=== PATIENT | female | born 1990 | race Caucasian/White ===

== ENCOUNTER 2022-12-14 09:35 | Outpatient (CLI) | payer MEDICAID, OTHER | END 2022-12-14 09:36 | disposition home or self-care (01) | LOC: CSHULT 09:35 | PROVIDERS: ATTEND Nurse Practitioner Women's Health | DX: O09.892 Supervision of other high risk pregnancies, second trimester (principal); Z3A.22 22 weeks gestation of pregnancy | CPT/HCPCS: 76805 ==

== ENCOUNTER 2023-03-12 09:12 | Day surgery (SDC) | payer OTHER ==
[2023-03-12 09:58] VITALS: BMI 53.7
[2023-03-12] MEDS ORDERED: hydrALAZINE 20 MG/ML VIAL ONE (10:13)
[2023-03-12 10:27] VITALS: BP 161/71
[2023-03-12] MEDS ORDERED: hydrALAZINE 20 MG/ML VIAL SLOW IVP PRN (10:36)
[2023-03-12 10:46] LABS: #Monocytes 0.8 10x3/uL (0.0-1.1); #Neutrophils 6.3 10x3/uL (1.5-8.4); %Basophils 0.2 % (0.0-2.0); %Eosinophils 0.5 % (0.0-6.0); %Lymphocytes 17.6 % (18.0-47.0); %Monocytes 8.8 % (0.0-10.0); %Neutrophils 72.1 % (40.0-75.0); Hemoglobin 12.7 g/dL (12.0-15.5); Mean Corpuscular HGB CONC 33.3 g/dL (32.0-36.0); Mean Corpuscular Hemoglobin 31.6 pg (27.0-33.0); Mean Corpuscular Volume 94.8 fl (81.6-98.3); Mean Platelet Volume 11.3 fl (7.4-10.4); Platelet Count 184 10x3/uL (150-450); RBC Distribution Width 13.8 % (11.5-14.5); Red Blood Cell (RBC) Count 4.02 10x6/uL (3.90-5.03); White Blood Cell (WBC) Count 8.8 10x3/uL (3.5-10.5)
[2023-03-12 10:57] LABS: ALT (SGPT) 16 U/L (8-55); AST (SGOT) 16 U/L (5-34); Albumin 3.5 g/dL (3.5-5.0); Alkaline Phosphatase 99 U/L (40-110); Anion Gap 17 mmol/L (10-20); BUN (Urea Nitrogen) 5 mg/dL (7.0-18.7); Bilirubin, Total 0.7 mg/dL (0.2-1.2); Calc. Creatinine Clearance 315 mL/min (70-130); Calcium 8.5 mg/dL (7.8-10.44); Carbon Dioxide 21 mmol/L (22-29); Chloride 106 mmol/L (98-107); Estimated GFR 124; Globulin 2.6 g/dL (2.4-3.5); Glucose 77 mg/dL (70-105); Potassium 4.1 mmol/L (3.5-5.1); Protein, Total 6.1 g/dL (6.0-8.3); Sodium 140 mmol/L (136-145)
[2023-03-12 11:10] LABS: Bilirubin Neg (Negative); Blood, Urine Negative (Negative); Clarity Clear (Clear); Glucose, Urine (Dipstick) Normal (Negative); Ketone, Urine 50 mg/dL (Negative); Leukocyte Negative (Negative); Nitrite Negative (Negative); Protein, Urine (Dipstick) 15 mg/dl (Neg-Trace); Specific Gravity, Urine 1.015 (1.005-1.030); Urobilinogen Normal mg/dL (Less than 2)
[2023-03-12 11:25] LABS: Bacteria/HPF None Seen HPF (None Seen); CAUTI Indications for Culture Pregnancy; RBC/HPF None Seen HPF (0-3); Squamous Epithelial 0-3 HPF (0-3); Urine Culture Reflex Yes Yes; WBC/HPF 0-3 HPF (0-3)
[2023-03-12 11:29] LABS: Creatinine, Urine 127.75 mg/dL (47-110)
== END 2023-03-12 12:15 | disposition home or self-care (01) ==
LOC: CSHLD/OP 09:12
PROVIDERS: ATTEND Family Medicine
DX: O47.03 False labor before 37 completed weeks of gestation, third trimester (principal); O24.410 Gestational diabetes mellitus in pregnancy, diet controlled; Z87.59 Personal history of other complications of pregnancy, childbirth and the puerperium; Z79.4 Long term (current) use of insulin; Z79.899 Other long term (current) drug therapy; Z88.1 Allergy status to other antibiotic agents; Z3A.35 35 weeks gestation of pregnancy
CPT/HCPCS: 51701; 80053; 81001; 82570; 84156; 85025; 87086; 96360; 96361; 96375; 99283; J0360

== ENCOUNTER 2023-03-18 11:22 | Day surgery (SDC) | payer OTHER | END 2023-03-18 16:30 | disposition home or self-care (01) | LOC: CSHLD/OP 11:22 | PROVIDERS: ATTEND Family Medicine | DX: Z36.89 Encounter for other specified antenatal screening (principal); O24.419 Gestational diabetes mellitus in pregnancy, unspecified control; Z3A.00 Weeks of gestation of pregnancy not specified | CPT/HCPCS: 59025; 76819; 99282 ==

== ENCOUNTER 2023-03-23 05:18 | Inpatient (IN) | payer OTHER ==
[2023-03-23 05:50] VITALS: BMI 53.0
[2023-03-23] MEDS ORDERED: Azithromycin 500 MG in Sodium Chloride 0.9% 250 ML 250 ML IVPB SCH (06:00)
[2023-03-23] MEDS ORDERED: Bicitra 30 ML UDCUP PO PRN (06:00)
[2023-03-23] MEDS ORDERED: Misoprostol 200 MCG TAB PR PRN (06:00)
[2023-03-23] MEDS ORDERED: Ondansetron PF 4 MG/2 ML Vial IVP PRN ×2 (06:00→07:22)
[2023-03-23] MEDS ORDERED: Methylergonovine 0.2 MG/ML VIAL IM PRN (06:00)
[2023-03-23] MEDS ORDERED: hydrALAZINE 20 MG/ML VIAL SLOW IVP PRN (06:00)
[2023-03-23] MEDS ORDERED: Tranexamic Acid 1,000 MG/10 ML VIAL IVP PRN (06:00)
[2023-03-23] MEDS ORDERED: Clindamycin/D5W 900 MG in Premix Bag 1 BAG IVPB SCH (06:00)
[2023-03-23] MEDS ORDERED: Carboprost 250 MCG/ML AMP IM PRN (06:00)
[2023-03-23] MEDS ORDERED: Promethazine HCl 25 MG/ML VIAL IM PRN ×2 (06:00→07:22)
[2023-03-23] MEDS ORDERED: hydrALAZINE 20 MG/ML VIAL ONE (06:00)
[2023-03-23] MEDS ORDERED: NS w/ Oxytocin 30 units 500 ML IV SCH (06:00)
[2023-03-23] MEDS ORDERED: Famotidine/PF 20 mg/2ml Vial SLOW IVP PRN (06:00)
[2023-03-23] MEDS ORDERED: Diphenoxylate HCl/Atropine Tablet PO PRN (06:00)
[2023-03-23] MEDS ORDERED: Magnesium Sulfate 20 gm/500 ml 20 GM/500 ML BAG ONE ×2 (06:05→17:21)
[2023-03-23] MEDS ORDERED: Gentamicin Sulfate 100 MG in Premix Bag 1 BAG IVPB SCH ×2 (06:15→06:30)
[2023-03-23 06:19] LABS: Hematocrit 36.6 % (34.9-44.5); Hemoglobin 12.5 g/dL (12.0-15.5); Mean Corpuscular HGB CONC 34.2 g/dL (32.0-36.0); Mean Corpuscular Hemoglobin 32.6 pg (27.0-33.0); Mean Corpuscular Volume 95.6 fl (81.6-98.3); Mean Platelet Volume 11.9 fl (7.4-10.4); Platelet Count 184 10x3/uL (150-450); Red Blood Cell (RBC) Count 3.83 10x6/uL (3.90-5.03); White Blood Cell (WBC) Count 9.4 10x3/uL (3.5-10.5)
[2023-03-23] MEDS ORDERED: Labetalol HCl 100 MG/20 ML VIAL ONE (06:36)
[2023-03-23] MEDS ORDERED: Dexamethasone 4 mg/ml Vial ONE (07:04)
[2023-03-23] MEDS ORDERED: Morphine PF 10 MG/10 ML VIAL ONE (07:04)
[2023-03-23] MEDS ORDERED: Ondansetron PF 4 MG/2 ML Vial ONE (07:04)
[2023-03-23] MEDS ORDERED: Phenylephrine 10 MG/ML VIAL ONE (07:04)
[2023-03-23] MEDS ORDERED: Oxytocin 10 UNITS/ML VIAL ONE ×2 (07:04→08:17)
[2023-03-23] MEDS ORDERED: fentaNYL 50 mcg/mL 1 mL Vial ONE (07:04)
[2023-03-23] MEDS ORDERED: Fentanyl 100 MCG/2 ML VIAL SLOW IVP PRN (07:22)
[2023-03-23] MEDS ORDERED: Promethazine HCl 25 MG SUPP PR PRN (07:22)
[2023-03-23] MEDS ORDERED: Meperidine HCl/PF 25 MG/ML VIAL SLOW IVP PRN (07:22)
[2023-03-23] MEDS ORDERED: Naloxone HCl 0.4 mg/ml Vial IV PRN (07:22)
[2023-03-23] MEDS ORDERED: diphenhydrAMINE 50 MG/ML VIAL IVP PRN (07:22)
[2023-03-23] MEDS ORDERED: HYDROmorphone 2 MG/ML VIAL SLOW IVP PRN (07:22)
[2023-03-23] MEDS ORDERED: Naloxone HCl 0.4 mg/ml Vial IVP PRN ×2 (07:22)
[2023-03-23] MEDS ORDERED: Ondansetron HCl/PF 4 MG/2 ML Vial IVP PRN (07:22)
[2023-03-23] MEDS ORDERED: Moisturizing Cream (Eucerin) 113 GM JAR TOP PRN (07:22)
[2023-03-23] MEDS ORDERED: Ketorolac Tromethamine 30 MG/ML VIAL IVP SCH (07:30)
[2023-03-23] MEDS ORDERED: Communication Order-Pharmacy FS SCH (07:30)
[2023-03-23 07:49] LABS: HBSAg Index 0.18 S/CO (0-0.99); Hep B Surf Ag - L&D Non-Reactive S/CO (NonReactive)
[2023-03-23 07:50] LABS: Syphilis Antibody Nonreactive (Nonreactive); Syphilis Antibody Index 0.03 S/CO (<1.00 Non-Reactive)
[2023-03-23] MEDS ORDERED: Promethazine HCl 25 MG/ML VIAL ONE (08:11)
[2023-03-23] MEDS ORDERED: PHENYLEPHRINE-NS 100 MCG/ML 10 ML SYRINGE ONE (08:32)
[2023-03-23] MEDS: Lactated Ringer's 1,000 ML IV SCH (10:00)
[2023-03-23] MEDS: Ketorolac Tromethamine 30 MG/ML VIAL IVP PRN (11:37)
[2023-03-24] MEDS ORDERED: Magnesium Sulfate 20 gm/500 ml 20 GM/500 ML BAG ONE (00:39)
[2023-03-24] MEDS ORDERED: Ketorolac Tromethamine 30 MG/ML VIAL ONE (00:43)
[2023-03-24] MEDS: Ketorolac Tromethamine 30 MG/ML VIAL IVP PRN (00:43)
[2023-03-24] MEDS ORDERED: Promethazine HCl 25 MG/ML VIAL IM PRN (08:02)
[2023-03-24] MEDS ORDERED: hydrALAZINE 20 MG/ML VIAL SLOW IVP PRN ×2 (08:02)
[2023-03-24] MEDS ORDERED: Calcium Gluc 4.6 MEQ/10 ML (100 MG/ML) SLOW IVP PRN (08:02)
[2023-03-24] MEDS ORDERED: Meperidine HCl/PF 25 MG/ML VIAL IM PRN (08:02)
[2023-03-24] MEDS ORDERED: Ketorolac Tromethamine 30 MG/ML VIAL IVP SCH (08:02)
[2023-03-24] MEDS ORDERED: Magnesium Sulfate 20 gm/500 ml 20 GM/500 ML BAG IVPB SCH (08:02)
[2023-03-24] MEDS ORDERED: Lanolin Ointment 7 GM TUBE TOP PRN (08:02)
[2023-03-24] MEDS ORDERED: Boostrix 0.5 ML (Tdap) VIAL (>/=7 yrs of age) IM ONE (08:02)
[2023-03-24] MEDS ORDERED: diphenhydrAMINE 25 MG CAP PO PRN (08:02)
[2023-03-24] MEDS ORDERED: Ondansetron PF 4 MG/2 ML Vial IVP PRN (08:02)
[2023-03-24] MEDS ORDERED: Lorazepam 2 MG/ML VIAL SLOW IVP PRN (08:02)
[2023-03-24] MEDS ORDERED: Bisacodyl 10 MG SUPP PR PRN (08:02)
[2023-03-24] MEDS ORDERED: Labetalol HCl 100 MG/20 ML VIAL SLOW IVP PRN (08:02)
[2023-03-24] MEDS: Labetalol HCl 100 MG TAB PO SCH ×3 (08:19→21:52)
[2023-03-24] MEDS: Docusate 100 MG CAP PO SCH ×2 (08:30→21:51)
[2023-03-24] MEDS: Ferrous Sulfate 325 MG TAB PO SCH ×2 (08:30→21:51)
[2023-03-24] MEDS: HYDROcodone/Acetaminophen 5/325 mg Tablet PO PRN ×3 (09:35→15:24)
[2023-03-24] MEDS: Prenatal Vitamin 1 TAB PO SCH (12:45)
[2023-03-24] MEDS: Lactated Ringer's 1,000 ML IV SCH ×2 (12:47→12:48)
[2023-03-24] MEDS: Ibuprofen 800 MG TAB PO SCH (17:30)
[2023-03-24] MEDS: Simethicone Chewable 80 MG TAB PO PRN (17:31)
[2023-03-25] MEDS: Ibuprofen 800 MG TAB PO SCH ×3 (01:38→18:03)
[2023-03-25] MEDS: HYDROcodone/Acetaminophen 5/325 mg Tablet PO PRN ×5 (01:38→21:48)
[2023-03-25 04:47] LABS: Hematocrit 34.1 % (34.9-44.5); Hemoglobin 11.2 g/dL (12.0-15.5); Mean Corpuscular HGB CONC 32.8 g/dL (32.0-36.0); Mean Corpuscular Hemoglobin 31.5 pg (27.0-33.0); Mean Corpuscular Volume 96.1 fl (81.6-98.3); Mean Platelet Volume 11.7 fl (7.4-10.4); Platelet Count 188 10x3/uL (150-450); RBC Distribution Width 14.6 % (11.5-14.5); Red Blood Cell (RBC) Count 3.55 10x6/uL (3.90-5.03); White Blood Cell (WBC) Count 8.1 10x3/uL (3.5-10.5)
[2023-03-25] MEDS: Labetalol HCl 100 MG TAB PO SCH ×3 (06:06→21:43)
[2023-03-25] MEDS: Ferrous Sulfate 325 MG TAB PO SCH ×2 (08:27→20:43)
[2023-03-25] MEDS: Prenatal Vitamin 1 TAB PO SCH (08:32)
[2023-03-25] MEDS: Docusate 100 MG CAP PO SCH ×2 (08:32→21:43)
[2023-03-25] MEDS: Simethicone Chewable 80 MG TAB PO PRN (08:33)
[2023-03-25] MEDS ORDERED: Ibuprofen 800 MG TAB PO SCH (14:00)
[2023-03-26] MEDS: Ibuprofen 800 MG TAB PO SCH ×2 (01:42→08:37)
[2023-03-26] MEDS: Labetalol HCl 100 MG TAB PO SCH ×2 (06:23→13:25)
[2023-03-26] MEDS: Prenatal Vitamin 1 TAB PO SCH (08:37)
[2023-03-26] MEDS: Ferrous Sulfate 325 MG TAB PO SCH (08:38)
[2023-03-26] MEDS: Docusate 100 MG CAP PO SCH (08:38)
[2023-03-26] MEDS: HYDROcodone/Acetaminophen 5/325 mg Tablet PO PRN (10:17)
[2023-03-26 13:17] VITALS: BP 142/88; TEMP 98.1
== END 2023-03-26 13:40 | disposition home or self-care (01) | DRG 786 ==
LOC: CSHLD 05:18 → CSHPP 03-24 10:15
PROVIDERS: ADMIT Family Medicine; ATTEND Family Medicine
PROC: 10D00Z1 Extraction of Products of Conception, Low, Open Approach (ICD-10-PCS; principal; 2023-03-23)
PROC: 3E0P05Z Introduction of Adhesion Barrier into Female Reproductive, Open Approach (ICD-10-PCS; 2023-03-23)
DX: O34.211 Maternal care for low transverse scar from previous cesarean delivery (principal); O24.32 Unspecified pre-existing diabetes mellitus in childbirth; Z3A.37 37 weeks gestation of pregnancy; Z37.0 Single live birth; O14.94 Unspecified pre-eclampsia, complicating childbirth; O99.214 Obesity complicating childbirth; E66.01 Morbid (severe) obesity due to excess calories; N99.4 Postprocedural pelvic peritoneal adhesions
CPT/HCPCS: 36415; 36416; 51702; 85027; 86780; 86850; 86900; 86901; 87340; J0360; J1100; J1580; J1885; J2274; J2370; J2405; J2550; J2590; J3010; J3475; J7120

== ENCOUNTER 2024-09-11 04:05 | Day surgery (SDC) | payer OTHER ==
[2024-09-11 05:01] VITALS: BMI 46.6
[2024-09-11] MEDS ORDERED: hydrALAZINE 20 MG/ML VIAL SLOW IVP PRN (05:34)
[2024-09-11] MEDS: Lactated Ringer's 1,000 ML IV SCH (05:50)
[2024-09-11 06:14] LABS: #Basophils Less than 0.03 10x3/uL (0.0-0.2); #Eosinophils 0.03 10x3/uL (0.0-0.5); #Monocytes 0.81 10x3/uL (0.0-1.1); #Neutrophils 7.87 10x3/uL (1.5-8.4); %Basophils 0.2 % (0.0-2.0); %Eosinophils 0.3 % (0.0-6.0); %Lymphocytes 17.2 % (18.0-47.0); %Monocytes 7.6 % (0.0-10.0); %Neutrophils 73.8 % (40.0-75.0); Hematocrit 38.5 % (34.9-44.5); Hemoglobin 13.7 g/dL (12.0-15.5); Mean Corpuscular HGB CONC 35.6 g/dL (32.0-36.0); Mean Corpuscular Hemoglobin 33.2 pg (27.0-33.0); Mean Corpuscular Volume 93.2 fL (81.6-98.3); Mean Platelet Volume 11.4 fL (7.4-10.4); Platelet Count 196 10x3/uL (150-450); RBC Distribution Width 13.3 % (11.5-14.5); Red Blood Cell (RBC) Count 4.13 10x6/uL (3.90-5.03); White Blood Cell (WBC) Count 10.66 10x3/uL (3.5-10.5)
[2024-09-11] MEDS: Ondansetron PF 4 MG/2 ML Vial IVP SCH (06:19)
[2024-09-11] MEDS ORDERED: Morphine PF 10 MG/10 ML VIAL ONE (06:53)
[2024-09-11] MEDS ORDERED: Dexmedetomidine 200 MCG/2 ML VIAL ONE (06:53)
[2024-09-11] MEDS ORDERED: Oxytocin 10 UNITS/ML VIAL ONE (06:54)
[2024-09-11] MEDS ORDERED: PHENYLEPHRINE-NS 100 MCG/ML 10 ML SYRINGE ONE (06:54)
[2024-09-11 06:57] LABS: ALT (SGPT) 22 U/L (Less than 34); AST (SGOT) 27 U/L (11-34); Alkaline Phosphatase 88 U/L (40-110); Anion Gap 16 mmol/L (10-20); BUN (Urea Nitrogen) 9 mg/dL (7.0-18.7); Bilirubin, Total 0.9 mg/dL (0.3-1.2); Calc. Creatinine Clearance 316 mL/min (70-130); Calcium 8.9 mg/dL (7.8-10.44); Carbon Dioxide 18 mmol/L (22-29); Chloride 108 mmol/L (98-107); Estimated GFR 128; Globulin 3.4 g/dL (2.4-3.5); Glucose 106 mg/dL (70-105); Potassium 4.4 mmol/L (3.5-5.1); Protein, Total 6.4 g/dL (6.0-8.3); Sodium 138 mmol/L (136-145)
[2024-09-11] MEDS ORDERED: Ondansetron PF 4 MG/2 ML Vial ONE (06:58)
[2024-09-11 07:16] LABS: Bilirubin Neg (Negative); Blood, Urine Negative (Negative); Clarity Clear (Clear); Glucose, Urine (Dipstick) Normal (Negative); Ketone, Urine 150 mg/dL (Negative); Leukocyte Negative (Negative); Nitrite Negative (Negative); Protein, Urine (Dipstick) 30 mg/dl (Neg-Trace); Specific Gravity, Urine 1.025 (1.005-1.030); Urobilinogen Normal mg/dL (Less than 2)
[2024-09-11 07:43] LABS: Bacteria/HPF 1+ HPF (None Seen); CAUTI Indications for Culture Pregnancy; Mucous/LPF 1+ LPF (<2+); RBC/HPF 0-3 HPF (0-3); Squamous Epithelial 0-3 HPF (0-3); WBC/HPF 0-3 HPF (0-3)
[2024-09-11 07:44] LABS: Urine Culture Reflex Yes Yes
== END 2024-09-11 09:35 | disposition home health service (06) ==
LOC: CSHLD/OP 04:05
PROVIDERS: ATTEND Family Medicine
DX: O47.03 False labor before 37 completed weeks of gestation, third trimester (principal); O24.419 Gestational diabetes mellitus in pregnancy, unspecified control; O10.913 Unspecified pre-existing hypertension complicating pregnancy, third trimester; O99.213 Obesity complicating pregnancy, third trimester; E66.01 Morbid (severe) obesity due to excess calories; O99.283 Endocrine, nutritional and metabolic diseases complicating pregnancy, third trimester; E86.0 Dehydration; Z79.4 Long term (current) use of insulin; Z87.59 Personal history of other complications of pregnancy, childbirth and the puerperium; Z88.1 Allergy status to other antibiotic agents; Z3A.34 34 weeks gestation of pregnancy
CPT/HCPCS: 76819; 80053; 81001; 85025; 87086; 96360; 96375; 99284; J2274; J2405; J2590

== ENCOUNTER 2024-10-01 09:20 | Inpatient (IN) | payer OTHER ==
[2024-10-01] MEDS ORDERED: Oxytocin 30 units/NS 500 ML 500 ML IV SCH (10:03)
[2024-10-01] MEDS ORDERED: Carboprost 250 MCG/ML AMP IM PRN (10:03)
[2024-10-01] MEDS ORDERED: Misoprostol 200 MCG TAB PR PRN (10:03)
[2024-10-01] MEDS ORDERED: Bicitra 30 ML UDCUP PO PRN (10:03)
[2024-10-01] MEDS ORDERED: Famotidine/PF 20 mg/2ml Vial SLOW IVP PRN (10:03)
[2024-10-01] MEDS ORDERED: Tranexamic Acid 1,000 MG/10 ML VIAL IVP PRN (10:03)
[2024-10-01] MEDS ORDERED: Methylergonovine 0.2 MG/ML VIAL IM PRN (10:03)
[2024-10-01] MEDS ORDERED: Acetaminophen 500 MG TAB PO PRN (10:03)
[2024-10-01] MEDS ORDERED: Diphenoxylate HCl/Atropine Tablet PO PRN (10:03)
[2024-10-01] MEDS ORDERED: Azithromycin 500 MG in Sodium Chloride 0.9% 250 ML 250 ML IVPB SCH (10:03)
[2024-10-01] MEDS ORDERED: CEFAZOLIN 2 GM in Sodium Chloride 0.9% 100 ML IVPB SCH (10:03)
[2024-10-01] MEDS ORDERED: Promethazine HCl 25 MG/ML VIAL IM PRN ×2 (10:03→16:24)
[2024-10-01 10:04] VITALS: BMI 47.5
[2024-10-01 10:20] LABS: Hematocrit 40.1 % (34.9-44.5); Hemoglobin 13.4 g/dL (12.0-15.5); Mean Corpuscular HGB CONC 33.4 g/dL (32.0-36.0); Mean Corpuscular Hemoglobin 31.8 pg (27.0-33.0); Mean Platelet Volume 11.4 fL (7.4-10.4); Platelet Count 172 10x3/uL (150-450); RBC Distribution Width 13.4 % (11.5-14.5); Red Blood Cell (RBC) Count 4.22 10x6/uL (3.90-5.03); White Blood Cell (WBC) Count 8.82 10x3/uL (3.5-10.5)
[2024-10-01] MEDS: Lactated Ringer's 1,000 ML IV SCH (10:20)
[2024-10-01] MEDS: hydrALAZINE 20 MG/ML VIAL SLOW IVP PRN (10:21)
[2024-10-01 11:02] LABS: HBsAg Index 0.31 S/CO (0-0.99); Hep B Surf Ag - L&D Non-Reactive S/CO (NonReactive)
[2024-10-01 11:03] LABS: Syphilis Antibody Nonreactive (Nonreactive); Syphilis Antibody Index 0.04 S/CO (<1.00 Non-Reactive)
[2024-10-01] MEDS: Ondansetron PF 4 MG/2 ML Vial IVP PRN (11:03)
[2024-10-01] MEDS: Magnesium Sulfate 20 gm/500 ml 20 GM/500 ML BAG ONE (11:04)
[2024-10-01] MEDS: Oxytocin 10 UNITS/ML VIAL ONE ×2 (11:08→17:05)
[2024-10-01] MEDS: Erythromycin Base 0.5% Oint 1 GM TUBE ONE (11:08)
[2024-10-01] MEDS: Phytonadione Neonatal 1 MG/0.5 ML AMP ONE (11:08)
[2024-10-01] MEDS: Ondansetron PF 4 MG/2 ML Vial ONE (11:08)
[2024-10-01] MEDS: Morphine PF 10 MG/10 ML VIAL ONE (11:08)
[2024-10-01] MEDS: PHENYLEPHRINE-NS 100 MCG/ML 10 ML SYRINGE ONE (11:08)
[2024-10-01] MEDS ORDERED: Calcium Gluc 4.6 MEQ/10 ML (100 MG/ML) IV PRN (11:15)
[2024-10-01] MEDS: Magnesium Sulfate 20 gm/500 ml 4 GM/100 ML BAG IVPB ONE (11:20)
[2024-10-01] MEDS: Labetalol HCl 100 MG TAB PO SCH ×2 (11:20→17:18)
[2024-10-01] MEDS: Clindamycin/D5W 900 MG in Premix 1 BAG IVPB SCH (11:39)
[2024-10-01] MEDS: Gentamicin Sulfate 385 MG in Sodium Chloride 0.9% 100 ML IVPB SCH (11:40)
[2024-10-01] MEDS ORDERED: Ondansetron PF 4 MG/2 ML Vial IVP PRN (16:24)
[2024-10-01] MEDS ORDERED: Bisacodyl 10 MG SUPP PR PRN (16:24)
[2024-10-01] MEDS ORDERED: Meperidine HCl/PF 25 MG (1 mL) VIAL IM PRN (16:24)
[2024-10-01] MEDS ORDERED: Lanolin Ointment 7 GM TUBE TOP PRN (16:24)
[2024-10-01] MEDS ORDERED: hydrALAZINE 20 MG/ML VIAL SLOW IVP PRN ×2 (16:24)
[2024-10-01] MEDS: Promethazine HCl 25 MG/ML VIAL ONE (17:05)
[2024-10-01] MEDS: Magnesium Sulfate 20 gm/500 ml 20 GM/500 ML BAG IVPB PRN (19:39)
[2024-10-01] MEDS: Docusate 100 MG CAP PO SCH (21:19)
[2024-10-01] MEDS: Ferrous Sulfate 325 MG TAB PO SCH (21:19)
[2024-10-01] MEDS: Ketorolac Tromethamine 30 MG (1 mL) VIAL IVP SCH (21:20)
[2024-10-02] MEDS: Ketorolac Tromethamine 30 MG (1 mL) VIAL IVP SCH (03:40)
[2024-10-02 05:02] LABS: Hematocrit 31.7 % (34.9-44.5); Hemoglobin 10.6 g/dL (12.0-15.5); Mean Corpuscular HGB CONC 33.4 g/dL (32.0-36.0); Mean Corpuscular Hemoglobin 31.9 pg (27.0-33.0); Mean Corpuscular Volume 95.5 fL (81.6-98.3); Mean Platelet Volume 11.3 fL (7.4-10.4); Platelet Count 145 10x3/uL (150-450); RBC Distribution Width 13.5 % (11.5-14.5); Red Blood Cell (RBC) Count 3.32 10x6/uL (3.90-5.03); White Blood Cell (WBC) Count 11.85 10x3/uL (3.5-10.5)
[2024-10-02] MEDS: Prenatal Vitamin 1 TAB PO SCH (09:44)
[2024-10-02] MEDS: HYDROcodone/Acetaminophen 5/325 mg Tablet PO PRN (15:36)
[2024-10-02] MEDS: Ibuprofen 800 MG TAB PO SCH (15:36)
[2024-10-02] MEDS: Simethicone Chewable 80 MG TAB PO PRN (19:46)
[2024-10-03] MEDS: Hepatitis B Vaccine 10 MCG/0.5 ML SYR ONE (12:42)
[2024-10-03] MEDS: Boostrix 0.5 ML (Tdap) VIAL (>/=7 yrs of age) IM ONE (12:43)
[2024-10-04] MEDS: HYDROcodone/Acetaminophen 5/325 mg Tablet PO PRN (00:58)
[2024-10-04] MEDS: diphenhydrAMINE 25 MG CAP PO PRN (08:54)
[2024-10-04] MEDS: Terbinafine 1% Cream 15 GM Tube TOP SCH (10:27)
[2024-10-06 12:12] VITALS: BP 127/61; TEMP 98.2
== END 2024-10-06 12:59 | disposition home or self-care (01) | DRG 785 ==
LOC: OBSVTOIN 09:20 → CSHLD 09:20 → CSHPED 10-02 14:23
PROVIDERS: ADMIT Family Medicine; ATTEND Family Medicine
PROC: 10D00Z1 Extraction of Products of Conception, Low, Open Approach (ICD-10-PCS; principal; 2024-10-01)
PROC: 0UB70ZZ Excision of Bilateral Fallopian Tubes, Open Approach (ICD-10-PCS; 2024-10-01)
PROC: 3E033XZ Introduction of Vasopressor into Peripheral Vein, Percutaneous Approach (ICD-10-PCS; 2024-10-01)
DX: O34.211 Maternal care for low transverse scar from previous cesarean delivery (principal); O14.14 Severe pre-eclampsia complicating childbirth; Z3A.37 37 weeks gestation of pregnancy; Z37.0 Single live birth; O24.429 Gestational diabetes mellitus in childbirth, unspecified control; O99.214 Obesity complicating childbirth; E66.01 Morbid (severe) obesity due to excess calories
CPT/HCPCS: 36415; 36416; 51702; 85027; 86780; 86850; 86900; 86901; 87340; 88302; J0360; J1580; J1885; J2274; J2405; J2550; J2590; J3475; J3490; J7120